=== PATIENT | male | born 1980 | race Two or more races ===

== ENCOUNTER 2016-08-19 10:59 | Emergency (ER) | payer MEDICAID ==
[~2016-08-19] VITALS: Ht 165.1 cm; Wt 63.5 kg
[2016-08-19 11:07] VITALS: BP 135/83
[2016-08-19 11:58] VITALS: BP 135/83
--- NOTE | 2016-08-19 12:02 | Emergency Room Report ---
History of Present Illness General Chief Complaint: Altered Level of Consciousness Source: Patient Present Illness [facility] Patient brought by EMS from [facility]. He admits to alcohol ingestion "a lot 2 days ago". Denies other drugs. He denies trauma, headache. Somewhat dizzy. No NVD, bleeding, extremity pain, URI sy, cough, dyspnea, chest pain, dysuria. No skin rashes. Denies depression, SI or HI. Allergies: Coded Allergies: No Known Allergies (Unverified , 01/25/16) Patient History Past Medical History: see triage record Social History: Reports: alcohol use Social History Narrative in [facility] Nursing Documentation-[facility] Past Medical History: No Stated History Review of Systems All Other Systems: negative except mentioned in HPI Physical Exam Vital Signs Date Time Temp Pulse Resp B/P Pulse Ox O2 Delivery O2 Flow Rate FiO2 08/19/16 10:56 97.9 92 16 135/83 95 Room Air Sp02 EP Interpretation: reviewed, normal General Appearance: no apparent distress, GCS 15, other - dishevelled Head: normocephalic, atraumatic Eyes: bilateral eye PERRL, bilateral eye Scleral Injection, bilateral eye other - nystagmus ENT: moist mucus membranes Neck: supple Respiratory: lungs clear, normal breath sounds Cardiovascular #1: regular rate, rhythm Cardiovascular #2: 2+ radial (R) Gastrointestinal: normal inspection, normal bowel sounds, non tender, no mass, non-distended Musculoskeletal: back normal, gait/station normal, normal range of motion Neurologic: alert, oriented x3, motor strength/tone normal, DTRs symmetric, sensory intact, normal gait, speech normal, other - nystagmus, but no ataxia Psychiatric: depressed affect Skin: warm/dry, other - sunburn face Medical Decision Making Diagnostic Impression: Primary Impression: Alcohol intoxication Additional Impression: Eloped ER Course Patient with alcohol ingestion brought by EMS. DDx: alcohol ingestion, other drugs. No evidence of trauma. Patient initially refused evaluation, then agreed to observation. No medical emergency present. Patient ate. Ambulated without ataxia to bathroom. Patient ran out of ED at 11:45. Chest X-Ray Diagnostic Results Chest X-Ray Ordered: No Last Vital Signs Date Time Temp Pulse Resp B/P Pulse Ox O2 Delivery O2 Flow Rate FiO2 08/19/16 11:58 97.9 86 16 135/83 97 Room Air Status: improved Disposition: ELOPED Condition: Stable Chacha,Chip M.D. Aug 19, 2016 12:02
== END 2016-08-19 11:50 | disposition left against medical advice (07) ==
LOC: EDBD 10:59 → EMR 11:33
DX: F10.129 Alcohol abuse with intoxication, unspecified (principal)
CPT/HCPCS: 99284